=== PATIENT | female | born 1985 | race African-American/Black ===

== ENCOUNTER 2023-04-09 13:44 | Emergency (ER) | payer MEDICAID ==
[~2023-04-09] VITALS: Ht 160 cm; Wt 133.0 kg
[2023-04-09] MEDS ORDERED: IBUPROFEN 600MG TABLET PO ONE (14:30)
[2023-04-09 14:35] VITALS: BP 132/109; PULSE 100; RESP 16; TEMP 98.5; O2SAT 98
== END 2023-04-09 17:13 | disposition home or self-care (01) ==
LOC: ER 13:57
DX: M79.89 Other specified soft tissue disorders (principal); M79.672 Pain in left foot; J45.909 Unspecified asthma, uncomplicated; Z98.890 Other specified postprocedural states
CPT/HCPCS: 73610; 73630; 93971; 99284